=== PATIENT | female | born 1940 | race Caucasian/White ===

== ENCOUNTER 2017-02-22 15:24 | Observation (INO) | payer MEDICARE ==
[~2017-02-22] VITALS: Ht 157.5 cm; Wt 43.2 kg
[2017-02-22] VITALS (9 sets, daily range): BP systolic 98–127; BP diastolic 44–70; PULSE 53–68; RESP 10–16; O2SAT 90–99
[~2017-02-22 15:24] MED LIST: ALBU18HF INH; ASPI325T32 PO; ATRINH INH; FLUO20CA25 PO; FRNCD30C PO; FUR20 PO; KLO5T PO; LISI-571 PO; LOPE2TAB32 PO; METO25TA99 PO; ONDA4TAB6 PO; PREG200C PO; SPIR25TA PO; TRAZ150T72 PO
--- NOTE | 2017-02-22 15:56 | ED.REPORT ---
HPI-General Illness Date of Service Feb 22, 2017 ED Provider: Dr. Cramer A 76 year old female with a history of COPD, HTN, GERD, and heartburn presents to the ED complaining of weakness onset "for quite a while." She has had weakness like this before, but it was really bad yesterday. She reports that her muscles seems to give way and her legs give out. Associated symptoms include loose stool onset 1 week ago. Loose stool started as slimy, glob-like defecation for 2 days which then turned into diarrhea. She also reports vomiting the other night, having loss of appetite and decreased fluid intake. She has had nausea that has onset today. She denies any fever, chest pain, or SOB. She recently got out of the hospital, being seen by vehicle return associate and other specialists. She reports that nothing was found to be wrong with her. She was brought to the ED by . Nursing Notes Stated Complaint: WEAKNESS, UNABLE TO WALK Chief Complaint: General Complaint Nursing Notes Reviewed: Yes Allergies: Coded Allergies: dichloralphenazone (Verified Allergy, Severe, 09/19/16) isometheptene (Verified Allergy, Severe, 09/19/16) sumatriptan (Verified Allergy, Severe, 09/19/16) Calcium Channel Blocking Agents-Dih (Verified Allergy, Unknown, 09/19/16) Sulfa (Sulfonamide Antibiotics) (Verified Allergy, Unknown, 09/19/16) Thiazides (Verified Allergy, Unknown, 09/19/16) diazoxide (Verified Allergy, Unknown, 09/19/16) Scheduled Aspirin (Aspirin) 325 Mg Tablet 325 MG PO DAILY Fluoxetine (Fluoxetine) 20 Mg Capsule 20 MG PO DAILY Furosemide (Furosemide) 20 Mg Tab 20 MG PO Three times per week Ipratropium [place] (Atrovent HFA) 200 Puff/12.9 Gm Inhaler 2 PUFF INH QID Lisinopril (Lisinopril) 5 Mg Tablet 2.5 MG PO BID Metoprolol Succinate ER (Metoprolol Succinate ER) 25 Mg Tab.er.24h 12.5 MG PO DAILY Pregabalin (Lyrica) 200 Mg Capsule 200 MG PO BID Spironolactone (Aldactone) 25 Mg Tablet 25 MG PO DAILY Trazodone (Trazodone) 150 Mg Tablet 150 MG PO HS Scheduled PRN Albuterol Sulfate (Ventolin HFA Inhaler) 200 Puff/18 Gm Inhaler 2 PUFF INH Q4 PRN PRN For Wheezing Butalbital/ASA/Caff/Cod 41-708-16-30 mg (Fiorinal/Codeine 77-339-56-30 mg) 1 Each Capsule 1 CAPSULE PO DAILY PRN PRN Headache Clonazepam (Clonazepam) 0.5 Mg Tablet 0.5 MG PO DAILY PRN PRN For Anxiety Loperamide (Loperamide) 2 Mg Tablet 2 MG PO Q4H PRN PRN For Diarrhea or Loose Stool Ondansetron (Zofran) 4 Mg Tablet 4 MG PO Q4H PRN PRN For Nausea General Time Seen by MD: 15:55 Chief Complaint Weakness Hx Obtained From: Patient Arrived By: Walk-in Sudden in Onset?: No Onset Occurred: Onset unknown ("quite a while ago," worse yesterday) Symptom Duration: Since onset Severity: Current: Mild Severity: Maximum: Mild Recent Healthcare: Recent doctor visit (Echocardiogram performed on 02/04/2017.) Similar Sx Previous: No Past Medical History Past Medical History Chronic back pain Anxiety Admit for hypoxic respiratory failure August 2013 COPD History of chronic migraines and chronic pain syndrome History of peptic ulcer with GI bleed 20+ years ago History of acute renal failure History of alcohol abuse Admit for Community Acquired Pneumonia 09/18/16 Nocturia Cirrhosis Echocardiogram performed on 02/04/2017. Reports: GERD, Hypertension Past Surgical History Shoulder surgery Cholecystectomy D&C History of bilateral cataract surgery Family History Noncontributory Smoking History Former Smoker (stopped smoking in 2015) Social History Patient lives with her . Alcohol Use: Denies alcohol use Drug Use: Denies drug use Ambulatory Status Independent Review of Systems Loss of appetite. Decreased fluid intake. Full Review of Systems Constitutional: Denies: Chills, Fever Respiratory: Denies: Shortness of breath Cardiovascular: Denies: Chest pain GI: Reports: Diarrhea, Nausea, Vomiting Neurologic: Reports: Weakness Complete sys rev & neg: except as marked. Physical Exam Vital Signs Vital Signs Date Time Temp Pulse Resp B/P Pulse Ox O2 Delivery O2 Flow Rate FiO2 02/22/17 21:29 56 14 103/53 97 Nasal Cannula 3 02/22/17 17:30 62 10 108/61 93 Room Air 02/22/17 15:56 36.5 58 13 98/52 90 Room Air 02/22/17 15:28 36.2 68 16 101/63 99 Room Air Initial VS: Reviewed General/Constitutional: Awake, Alert Head / Eyes: Atraumatic, Normocephalic, PERRL, EOMI ENT: Atraumatic, Airway patent Respiratory / Chest: Atraumatic, Breath sounds NL, Breath sounds = bilat, No respiratory distress, No rales, No rhonchi, No wheezing Cardiovascular: Heart rate NL, Regular rhythm, Heart sounds NL, No gallop, No murmurs Abdomen: Soft, Non-tender, BS normoactive Back: No CVA tenderness Skin: Warm, Dry Neurologic: Oriented X3, Speech NL, No motor deficits Motor intact in all 4 extremities. Interpretation & Diagnostics Lab Results Interpretation Result Diagram: 02/22/17 1645 02/22/17 1645 Test 02/22/17 16:45 02/22/17 17:15 White Blood Count 4.4th/mm3 (3.8-10.1) Red Blood Count 3.97mil/mm3 (3.90-5.20) Hemoglobin 12.1g/dL (12.0-15.6) Hematocrit 36.7% (35.0-46.0) Mean Corpuscular Volume 92.4fL (81-100) Mean Corpuscular Hemoglobin 30.5pg (27.0-35.0) Mean Corpuscular Hemoglobin Concent 33.0% (32.0-37.0) Red Cell Distribution Width 13.2% (12.3-15.4) Platelet Count 137bil/L (150-400) Neutrophils (%) (Auto) 43.1% (40-74) Lymphocytes (%) (Auto) 39.0% (14-46) Monocytes (%) (Auto) 12.2% (4-12) Eosinophils (%) (Auto) 4.5% (0-5) Basophils (%) (Auto) 0.7% (0-3) D-Dimer 0.77mg/L FEU (<0.50) Sodium Level 133mEq/L (134-144) Potassium Level 4.7mEq/L (3.5-5.2) Chloride Level 94mEq/L (97-108) Carbon Dioxide Level 25mmol/L (18-29) Blood Urea Nitrogen 15mg/dL (8-27) Creatinine 1.21mg/dL (0.57-1.00) Estimat Glomerular Filtration Rate 62mL/min (>59) Glucose Level 96mg/dL (60-99) Calcium Level 9.8mg/dL (8.5-10.1) Magnesium Level 1.4mg/dL (1.6-2.6) Total Bilirubin 0.2mg/dL (0.0-1.2) Aspartate Amino Transf (AST/SGOT) 27U/L (0-50) Alanine Aminotransferase (ALT/SGPT) 12U/L (0-32) Alkaline Phosphatase 47U/L (25-165) Troponin T < 0.010ug/L (0.0-0.011) Total Protein 6.0g/dL (6.4-8.4) Albumin 3.7g/dL (3.4-5.0) Lipase 29U/L (13-60) Procalcitonin 0.06ng/mL (0.00-0.08) Urine Color Yellow (YELLOW) Urine Appearance Clear (CLEAR,HAZY) Urine pH 6.0 (5.0-8.0) Urine Specific [place] 1.010 (1.003-1.035) Urine Protein Negativemg/dL (NEG,TRACE) Urine Glucose (UA) Negativemg/dL (NEGATIVE) Urine Ketones Negativemg/dL (NEGATIVE) Urine Occult Blood Negative (NEGATIVE) Urine Nitrite Negative (NEGATIVE) Urine Bilirubin Negative (NEGATIVE) Urine Urobilinogen Normalmg/dL (NORMAL) Urine Leukocyte Esterase Negative (NEGATIVE) Urine RBC 0-2/hpf (0-2) Urine WBC 0-5/hpf (0-5) Urine Epithelial Cells Occasional/hpf (NONE-MOD) Urine Crystals None seen (NONE SEEN) Urine Bacteria None/hpf (NONE-FEW) Urine Hyaline Casts Rare/lpf (NONE) Urine Granular Casts None seen (NONE SEEN) Urine Waxy Casts None seen (NONE SEEN) Urine Red Blood Cell Casts None seen (NONE SEEN) Urine White Blood Cell Casts None seen (NONE SEEN) Urine Mucus None seen (None Seen) Urine Trichomonas None seen (NONE SEEN) Urine Yeast None (NONE SEEN) Urinalysis Comment None Urine Culture Reflexed Not indicated ECG Interpretation ECG Interpretation: Rate is 57. Sinus rhythm. Low voltage, extremity leads. Time: 16:16 Interpreted by: ED physician X-Ray Chest Interpretation Chest Xray Interpretation: IMPRESSION: No acute cardiopulmonary findings. Emphysematous change. Dictated by: Ani Blank M.D. on 02/22/2017 at 16:57 Approved by: Ani Blank M.D. on 02/22/2017 at 16:57 Interpretation / Wet Read by: Interpret - Radiologist Re-Eval/Medical Decision Med Decision/Clinical Course Frail elderly female with lung disease presenting with generalized weakness. He noted be hypoxic with minimal exertion. Also is dyspneic with minimal exertion. Does not appear to be in acute congestive failure based on exam and x-ray, no evidence for infiltrate or ischemia. I am told the patient was discharged on supplemental oxygen but at some point it was no longer felt that she needed it. I do not find an acute cause for weakness and numbness elderly female other than hypoxemia. The patient will like to be full code. She is admitted to hospitalist service on observation status. Source of Hx: Old records Time of Eval: 20:48 Re-Evaluation/Progress Note: Rechecked patient who has been sleeping. she reports that she lives with her . Time of Eval: 21:12 Re-Evaluation/Progress Note: Patient oxygen saturation drops into 70's on room air with ambulation. Discussed plan for admission with patient. Patient understands and agrees with the plan. All questions addressed. Consultation : Referral / Consult Name: Bao Cao MD Consulted With: Hospitalist Call Returned at: 21:23 [place] Hitch Driver: Agrees with eval, Agrees with plan, Accepts admit Note: Discussed patient case with Dr. Cao who accepts patient admit. Counseled Regarding: Diagnosis, Lab results, Need for follow-up, Need for admission Discharge & Departure Primary Impression: Hypoxia Additional Impression: Weakness Disposition: ADMITTED TO HOSPITAL Discharge Condition All VS Reviewed: Yes Condition: Stable Referrals: Rose Cohen PA-C (PCP) Tiffanie Attestation Portions of this note were transcribed by Aguilar Blas. IDr. Cramer personally performed the history, physical exam and medical decision-making; I reviewed and confirmed the accuracy of the information in the transcribed note. Signed by: Tiffanie Wren, 02/22/2017, 0725. copies to: Rose Cohen PA-C, Donald L MD Feb 22, 2017 15:56 Aguilar Blas Feb 22, 2017 16:24
[2017-02-22] MEDS ORDERED: 0.9% Sodium Chloride 1,000 ML IV ONE (16:03)
[2017-02-22] MEDS ORDERED: Ondansetron 2 mg/mL 2 mL Inj IV PRN (16:05)
--- NOTE | 2017-02-22 16:59 | DRSVH ---
PROCEDURE: X-RAY CHEST ONE VIEW, PORTABLE ([id number]) INDICATIONS: weakness TECHNIQUE: One view of the chest was acquired. COMPARISON: None. FINDINGS: Surgical changes and devices: None. Lungs and pleura: No pleural effusions or pneumothorax. Lungs are clear. The lung volumes are larg e and the diaphragms are flattened suggesting emphysema. Mediastinum: Mediastinal contours appear normal. Heart size is normal. Bones and chest wall: No suspicious bony lesions. S-shaped scoliosis is present throughout the thor acic spine. Overlying soft tissues appear unremarkable. IMPRESSION: No acute cardiopulmonary findings. Emphysematous change. Dictated by: Ani Blank M.D. on 02/22/2017 at 16:57 Approved by: Ani Blank M.D. on 02/22/2017 at 16:57
[2017-02-22 17:14] LABS: BASOPHILS % (AUTO) 0.7 % (0-3); EOSINOPHILS % (AUTO) 4.5 % (0-5); MONOCYTES % (AUTO) 12.2 % (4-12); Mean Corpuscular Hemoglobin 30.5 pg (27.0-35.0); Mean Corpuscular Volume 92.4 fL (81-100); NEUTROPHILS % (AUTO) 43.1 % (40-74); Platelet Count 137 bil/L (150-400)
[2017-02-22 17:41] LABS: Lipase 29 U/L (13-60); Magnesium 1.4 mg/dL (1.6-2.6)
[2017-02-22 17:45] LABS: TROPONIN T < 0.010 ug/L (0.0-0.011)
[2017-02-22 18:00] LABS: APPEARANCE,URINE CLEAR (CLEAR,HAZY); COLOR,URINE YELLOW (YELLOW); OCCULT BLOOD,URINE NEGATIVE (NEGATIVE); UROBILINOGEN,URINE NORMAL (NORMAL)
[2017-02-22] MEDS ORDERED: Ondansetron 2 mg/mL 2 mL Inj IVPUSH PRN ×2 (22:20)
[2017-02-22] MEDS ORDERED: Alum-Mag Hydrox-Simeth 30 mL Suspension PO PRN ×2 (22:20)
[2017-02-22] MEDS ORDERED: 0.9% Sodium Chloride 500 ML IV ONE (22:25)
[2017-02-22] MEDS ORDERED: Magnesium Sulf 2 Gm/50mL Water 2 GM in IV Premix 1 EACH IV ONE (22:25)
[2017-02-22] MEDS ORDERED: Albuterol 2.5 mg/3 mL Inhalation Solution NEB PRN (22:45)
[2017-02-22] MEDS ORDERED: Albuterol-Ipratropium 3 mL Inhalation Solution NEB PRN (22:45)
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
[2017-02-23] VITALS (7 sets, daily range): BP systolic 98–121; BP diastolic 50–67; PULSE 55–73; RESP 15–18; O2SAT 83–92
[2017-02-23] MEDS: Heparin 5,000 Unit/mL Inj SUBQ SCH ×3 (01:19→16:49)
--- NOTE | 2017-02-23 06:31 | NUR ---
MARILEE PT received from ED around 2300 last noc. PT here for generalized weakness she reported and n/v/diarrhea. PT has not had any s/s except weakness noted. She is a 1p SBA to BSC. Denies any pain. Lungs are diminished t/o and requiring 2l NC. ON tele and in NSR. V/S WNL. PT is a poor historian. MOst of her meds were reconciled to the best of her knowledge. PT uses call light appropriately. ORthostatics were done and were slightly irregular. WE are waiting for a stool sample. Magnesium was replaced with 2gms IV for a mag of 1.4. D dimer was elevated at 0.77, but no further tests are scheduled at this time. Heparin given for DVT prophylaxis. Will CTM.
[2017-02-23 06:48] LABS: BASOPHILS % (AUTO) 0.5 % (0-3); EOSINOPHILS % (AUTO) 4.5 % (0-5); MONOCYTES % (AUTO) 10.9 % (4-12); Mean Corpuscular Hemoglobin 30.5 pg (27.0-35.0); Mean Corpuscular Volume 91.6 fL (81-100); Platelet Count 133 bil/L (150-400)
[2017-02-23 07:14] LABS: Magnesium 1.8 mg/dL (1.6-2.6)
--- NOTE | 2017-02-23 12:22 | NUR ---
RIC explained to pt and her who is at bedside. Ric signed by , copy given to him.
--- NOTE | 2017-02-23 13:03 | NUR ---
Evaluation completed. Please go to "Notes" then click on "Assessments and Notes" (bottom left corner of screen). Then select appropriate discipline tab on top of screen.
--- NOTE | 2017-02-23 14:42 | PCM.PNMED ---
Subjective Date of Service Feb 23, 2017 Subjective reports continued generalized weakness and malaise. no CP, SOB, n/v Exam Vital Signs Vital Sign - Last Date Time Temp Pulse Resp B/P Pulse Ox O2 Delivery O2 Flow Rate FiO2 02/23/17 13:29 36.8 57 16 103/58 90 Room Air 02/23/17 04:17 2.00 Intake and Output 02/22/17 02/22/17 02/23/17 Cumulative From/Thru 15:00 23:00 07:00 02/22/17 15:28 - 02/23/17 06:09 Intake Total 1000 ml 1257 ml 2257 ml Output Total 300 ml 800 ml 1100 ml Balance 700 ml 457 ml 1157 ml Intake Oral 200 ml 200 ml IV Total 1000 ml 1057 ml 2057 ml Output Urine Total 300 ml 800 ml 1100 ml # Bowel Movements 0 0 General: Alert, Cooperative, No Acute Distress Head: Normal Eyes: Scleral Anicteric Nose: Mucous Membr Moist/[place] Negron Torres Mouth: Mucous Membr Moist/[place] Torres Neck: Supple Chest & Lungs: Chest Wall Normal, Clear to auscultation & percussion Cardiovascular: Regular Rate/Rhythm Pulses: NL carotid, radial, femoral, DP, PT Abdomen: Non-tender, Non-distended, Normoactive bowel tones, Soft Extremities: No cyanosis/clubbing/edma bilat Skin: Other (no rash) Neurological: Grossly Neurologically Intact, Cranial Nerves 2-12 Intact, Normal Speech IVs and Medications Medications Reviewed: Medications were reviewed in detail Lab and Diagnostics Result Diagram: 02/23/17 0630 02/23/17 0630 X-Rays, CTs and MRIs PROCEDURE: X-RAY CHEST ONE VIEW, PORTABLE ([id number]): Lungs and pleura: No pleural effusions or pneumothorax. Lungs are clear. The lung volumes are large and the diaphragms are flattened suggesting emphysema. Mediastinum: Mediastinal contours appear normal. Heart size is normal. Bones and chest wall: No suspicious bony lesions. S-shaped scoliosis is present throughout the thoracic spine. Overlying soft tissues appear unremarkable. IMPRESSION: No acute cardiopulmonary findings. Emphysematous change. Assessment & Plan 76 yo F with history of COPD on home oxygen, h/o CHF with normalized LVEF of 65- 70% on echo from 01/2017, PFO, alcohol abuse in remission, chronic pain, anxiety disorder, and tobacco dependence who presented to the ED with her for complaints of increasing weakness. She was admitted to the hospital for further evaluation when her saturations dropped to the low 70s on ambulation. # Acute Hypoxic Respiratory Failure, Present on Admission. improving -CTA negative for pulmonary embolism -physical therapy evaluation -continue with supportive care including supplemental oxygen as need -reassess oxygen needs with ambulation # Acute Kidney Injury, present on admission. -resolved with IV fluid -hold home dose Spironolactone for now -continue with IV fluid # Acute hyperkalemia. not present on admission. -change IV fluid to D5 1/2 NS -followup labs and if persist or rising will consider Kayexalate -monitor on Tele until hyperkalemia resolve # Acute diarrhea, reported present on admission. currently resolved. -continue home Loperamide # Acute dehydration. present on admission. improving -hold home dose Spironolactone for now -continue with IV fluid # History of COPD. stable -no signs of acute exacerbation currently, other than the transient desat with ambulation -keep Saturations between 88-92% -Albuterol HFA prn -Duoneb prn # Acute hypomagnesemia, present on admission. -resolved after replacement. # History of diastolic CHF. stable and compensated. -LVEF 65-70% on 01/2017. -hold Spironolactone as noted # Chronic Pain. stable -continue with supportive care # History of anxiety and depression. stable -continue Fluoxetine Dispo: 1-2 days VTE Prophylaxis: Sub-Q Heparin (Unfractionated) Resuscitation Status: CPR: Attempt Resuscitation Giuliano Dorman Feb 23, 2017 14:42
[2017-02-23] MEDS ORDERED: Dextrose 5% 0.9% NaCl 1,000 ML IV ONE (14:45)
--- NOTE | 2017-02-23 15:46 | NUR ---
Social Work Note: Initial Assessment Data& Assessment: EMR reviewed. SW met with pt and pt at bedside to discuss discharge planning, SW role explained. Debra Rebolledo is a 76 year old female admitted on 02/22/2017 for general weakness and hypoxcemia. Pt has [employer] [facility] [place] medic plan and sees Rose BOND for primary care. Pt lives in [place] with her spouse and is independent at baseline. Pt does not use any DME at home and does not have SNF hx. Pt has had [facility] in the past for RN and PT. Pt does not wear oxygen at home but is requiring oxygen at this time. Pt drives at baseline. Pt lives in a two story home. Pt does not have LTC insurance or VA benefits. Pt has DPOA/Advance Directive paperwork completed at home, SW requested a copy when possible. SW to follow for PT evaluation and recommendations. Pt denies any other needs at this time. SW to continue to follow. Plan: Anticipated discharge home via POV when medically ready. SW to follow for PT evaluation and recommendations. Pt denies any other needs at this time. SW to continue to follow. MELE Covarrubias Addendum: 02/23/17 at 1552 by MAHI BARLOW Amended: Links added.
[2017-02-24] MEDS: Heparin 5,000 Unit/mL Inj SUBQ SCH ×2 (01:24→09:24)
[2017-02-24 01:52] VITALS: BP 144/66; PULSE 63; RESP 18; O2SAT 89
--- NOTE | 2017-02-24 04:59 | NUR ---
O2 sats while ambulation pt had a 83-88% of o2 saturation while ambulating around hallways. Pt however, denies sob. Denies chest pain, n/v or abd discomfort. HS meds administered as scheduled. VSS and afebrile overnight. Will continue to monitor.
[2017-02-24 05:52] VITALS: BP 132/74; PULSE 65; RESP 16; O2SAT 90
[2017-02-24 06:19] LABS: Mean Corpuscular Hemoglobin 30.1 pg (27.0-35.0); Mean Corpuscular Volume 92.5 fL (81-100)
[2017-02-24 07:54] VITALS: PULSE 68; RESP 16; O2SAT 91
[2017-02-24 10:10] VITALS: BP 144/77; PULSE 72; RESP 20; O2SAT 93
[2017-02-24 10:33] VITALS: PULSE 84
[2017-02-24] MEDS ORDERED: LISI-571 PO (11:07)
--- NOTE | 2017-02-24 11:07 | PCM.DIMED ---
Discharge Instructions Date of Service Feb 24, 2017 Dates of Hospitalization Feb 22, 2017 at 21:54 Discharge Diagnosis Discharge Diagnosis # Acute Kidney Injury due to dehydration, present on admission. Resolved with IV fluid # Acute dehydration. present on admission. Resolved # Acute hyperkalemia. Not present on admission. Resolved # Acute diarrhea, reported present on admission. Improved # Acute hypoxic respiratory failure, present on Admission. Resolved. -CTA chest negative for pulmonary embolism # History of COPD. Stable # Acute hypomagnesemia, present on admission. Resolved # History of systolic CHF. Resolved and stable based on echocardiogram on 2016 showing LVEF 65-70% # Chronic Pain. stable # History of anxiety and depression. stable Diet Low fat, Low Sodium, Heart Healthy Activity Outpatient Physical Therapy Call your provider Fever or Chills, Shortness of breath, Chest pain, Vomitting, Excessive diarrhea Patient Instructions Seek immediate medical attention if any new or worsening signs or symptoms occur. Follow-up plan 1. Followup with your primary care provider in 5-10 days 2. Followup with your jukebox routeman as previously planned Follow-up Provider: Rose Cohen PA-C Provider: Jorge Orozco MD, Masoud Feb 24, 2017 11:07
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
--- NOTE | 2017-02-24 13:10 | NUR ---
Discharge Patient departed unit via wheelchair, accompanied by staff and patient. Patient alert and oriented at time of discharge. Patient ambulated with Pt in hallway prior to discharge with O2 sats dropping to 89% on room air. Patient O2 sats recovered with some deep breathing as prompted by physical therapy. Patient reporting some shortness of breath with exertion. Denies pain, chest discomfort, difficulty with urination, nausea. Reporting loose stools this am. Discharge instructions/medications reviewed with patient prior to discharge. All questions addressed. Discharge instructions, patient belongings and prescription in hand.
--- NOTE | 2017-02-24 15:17 | PCM.DC.MED ---
Discharge Summary Date of Service Feb 24, 2017 Dates of Hospitalization Date of Hospital Admission Feb 22, 2017 at 21:54 Date of Discharge: Feb 24, 2017 Providers: Admitting Physician: Bao Cao MD Primary Care Physician: Rose Cohen PA-C Attending Physician: Bao Cao MD Diagnosis at Time of Discharge Diagnosis at Time of Discharge # Acute Kidney Injury due to dehydration, present on admission. Resolved with IV fluid # Acute dehydration. present on admission. Resolved # Acute hyperkalemia. Not present on admission. Resolved # Acute diarrhea, reported present on admission. Improved # Acute hypoxic respiratory failure, present on Admission. Resolved. -CTA chest negative for pulmonary embolism # History of COPD. Stable # Acute hypomagnesemia, present on admission. Resolved # History of systolic CHF. Resolved and stable based on echocardiogram on 2016 showing LVEF 65-70% # Chronic Pain. stable # History of anxiety and depression. stable Procedures XRay, CTs & MRIs Date of Service: 02/22/17 1603 PROCEDURE: X-RAY CHEST ONE VIEW, PORTABLE ([id number]) IMPRESSION: No acute cardiopulmonary findings. Emphysematous change. Dictated by: Ani Blank M.D. on 02/22/2017 at 16:57 Approved by: Ani Blank M.D. on 02/22/2017 at 16:57 Brief History As noted in H&P by Dr. Baker: Debra is a 76 yo F with history of COPD on home oxygen, h/o CHF with normalized LVEF of 65-70% on echo from 01/2017, PFO, alcohol abuse in remission , chronic pain, anxiety disorder, and tobacco dependence who presented to the ED with her for complaints of increasing weakness and fatigue. Patient is a poor historian, but reports that she has been having ongoing weakness "for a while now". She reports her legs have been buckling more in the last few days while walking, and her was worried so he brought her to the ER. She has also been experiencing diarrhea, nausea, and vomiting in the last 3-4 days. She denies any fevers, CP, SOB, cough, or dysuria, but admits to some chills. She was hospitalized on 09/2016 for Comm acquired Pneumonia, decompensated HF, and COPD exacerbation. She was discharged with home O2, which she reports she has not been using much recently. She has been following up with her inventory administrator, Dr. Orozco. She reports she has been compliant with her medications. She was at her baseline and was able to perform her ADLs prior to this week. In the ED, she was afebrile, and her pulse were in the low 50s to low 60s. Her BP ranged between 98/52 to 112/44. Her breathing rate occasionally dipped to 10. She was noted to be saturating in the low 90s on RA. She received 1 liter of NS. She was then roadtested, but was noted to desat to low 70s on RA with ambulation. Her EKG showed sinus rhythm with rate of 57. Her CBC was benign and her CMP showed a Cr of 1.21 with mag of 1.4 Hospital Course # Acute Hypoxic Respiratory Failure, Present on Admission. Resolved -CTA negative for pulmonary embolism -physical therapy evaluation -reassessed by respiratory therapy on day of discharge and does not meet requirement for further home oxygen at this time. # Acute Kidney Injury, present on admission. -resolved with IV fluid -per discussion with her inventory administrator (Dr Orozco) will stop all diuretics on discharge. # Acute hyperkalemia. not present on admission. Resolved. -stop home Spironolactone. # Acute diarrhea, reported present on admission. currently resolved. -continue home Loperamide -stool pcr negative # Acute dehydration. present on admission. Resolved -hold home diuretics as noted above # History of COPD. stable -no signs of acute exacerbation currently # Acute hypomagnesemia, present on admission. -resolved after replacement. # History of systolic CHF. Resolved and stable based on last echo from 01/2017 ( LVEF 65-70%) -stop diuretics and metoprolol per discussion with Dr. Orozco -continue with low dose Lisinopril # Chronic Pain. stable -continue with supportive care # History of anxiety and depression. stable -continue Fluoxetine Exam Vital Signs (Last) Date Time Temp Pulse Resp B/P Pulse Ox O2 Delivery O2 Flow Rate FiO2 02/24/17 13:17 Room Air 02/24/17 10:33 84 02/24/17 10:10 36.7 20 144/77 93 02/23/17 04:17 2.00 Exam General: Alert, Cooperative, No Acute Distress Head: Normal Eyes: Scleral Anicteric Nose: Mucous Membr Moist/[place] Mouth: Mucous Membr Moist/[place] Neck: Supple Chest & Lungs: Chest Wall Normal, Clear to auscultation bilaterally Cardiovascular: Regular Rate/Rhythm Pulses: NL carotid, radial, femoral, DP, PT Abdomen: Non-tender, Non-distended, Normoactive bowel tones, Soft Extremities: No cyanosis/clubbing/edema bilat Skin: Other (no rash) Neurological: Grossly Neurologically Intact, Cranial Nerves 2-12 Intact, Normal Speech Test 02/22/17 16:45 02/22/17 17:15 02/23/17 06:30 02/24/17 05:25 D-Dimer 0.77mg/L FEU (<0.50) Total Bilirubin 0.2mg/dL (0.0-1.2) Aspartate Amino Transf (AST/SGOT) 27U/L (0-50) Alanine Aminotransferase (ALT/SGPT) 12U/L (0-32) Alkaline Phosphatase 47U/L (25-165) Troponin T < 0.010ug/L (0.0-0.011) Total Protein 6.0g/dL (6.4-8.4) Albumin 3.7g/dL (3.4-5.0) Lipase 29U/L (13-60) Procalcitonin 0.06ng/mL (0.00-0.08) Urine Color Yellow (YELLOW) Urine Appearance Clear (CLEAR,HAZY) Urine pH 6.0 (5.0-8.0) Urine Specific Sebastian 1.010 (1.003-1.035) Urine Protein Negativemg/dL (NEG,TRACE) Urine Glucose (UA) Negativemg/dL (NEGATIVE) Urine Ketones Negativemg/dL (NEGATIVE) Urine Occult Blood Negative (NEGATIVE) Urine Nitrite Negative (NEGATIVE) Urine Bilirubin Negative (NEGATIVE) Urine Urobilinogen Normalmg/dL (NORMAL) Urine Leukocyte Esterase Negative (NEGATIVE) Urine RBC 0-2/hpf (0-2) Urine WBC 0-5/hpf (0-5) Urine Epithelial Cells Occasional/hpf (NONE-MOD) Urine Crystals None seen (NONE SEEN) Urine Bacteria None/hpf (NONE-FEW) Urine Hyaline Casts Rare/lpf (NONE) Urine Granular Casts None seen (NONE SEEN) Urine Waxy Casts None seen (NONE SEEN) Urine Red Blood Cell Casts None seen (NONE SEEN) Urine White Blood Cell Casts None seen (NONE SEEN) Urine Mucus None seen (None Seen) Urine Trichomonas None seen (NONE SEEN) Urine Yeast None (NONE SEEN) Urinalysis Comment None Urine Culture Reflexed Not indicated Neutrophils (%) (Auto) 45.0% (40-74) Lymphocytes (%) (Auto) 38.6% (14-46) Monocytes (%) (Auto) 10.9% (4-12) Eosinophils (%) (Auto) 4.5% (0-5) Basophils (%) (Auto) 0.5% (0-3) Lactic Acid Level 0.5mmol/L (0.4-2.0) Magnesium Level 1.8mg/dL (1.6-2.6) White Blood Count 4.7th/mm3 (3.8-10.1) Red Blood Count 3.75mil/mm3 (3.90-5.20) Hemoglobin 11.3g/dL (12.0-15.6) Hematocrit 34.7% (35.0-46.0) Mean Corpuscular Volume 92.5fL (81-100) Mean Corpuscular Hemoglobin 30.1pg (27.0-35.0) Mean Corpuscular Hemoglobin Concent 32.6% (32.0-37.0) Red Cell Distribution Width 13.5% (12.3-15.4) Platelet Count 144bil/L (150-400) Sodium Level 143mEq/L (134-144) Potassium Level 4.6mEq/L (3.5-5.2) Chloride Level 107mEq/L (97-108) Carbon Dioxide Level 24mmol/L (18-29) Blood Urea Nitrogen 12mg/dL (8-27) Creatinine 0.73mg/dL (0.57-1.00) Estimat Glomerular Filtration Rate 112mL/min (>59) Glucose Level 87mg/dL (60-99) Calcium Level 8.7mg/dL (8.5-10.1) Discharge Medications Discharge Medications Aspirin (Aspirin) 325 Mg Tablet 325 MG PO DAILY (Reported) Fluoxetine (Fluoxetine) 20 Mg Capsule 20 MG PO DAILY (Reported) Ipratropium [place] (Atrovent HFA) 200 Puff/12.9 Gm Inhaler 2 PUFF INH QID ( Reported) Lisinopril (Lisinopril) 5 Mg Tablet 5 MG PO DAILY Prescribed by: ELMA SEWELL MD Pregabalin (Lyrica) 200 Mg Capsule 200 MG PO BID (Reported) Trazodone (Trazodone) 150 Mg Tablet 150 MG PO HS (Reported) As needed Albuterol Sulfate (Ventolin HFA Inhaler) 200 Puff/18 Gm Inhaler 2 PUFF INH Q4 PRN PRN For Wheezing (Reported) Butalbital/ASA/Caff/Cod 79-495-24-30 mg (Fiorinal/Codeine 32-277-38-30 mg) 1 Each Capsule 1 CAPSULE PO DAILY PRN PRN Headache (Reported) Clonazepam (Clonazepam) 0.5 Mg Tablet 0.5 MG PO DAILY PRN PRN For Anxiety ( Reported) Loperamide (Loperamide) 2 Mg Tablet 2 MG PO Q4H PRN PRN For Diarrhea or Loose Stool (Reported) Ondansetron (Zofran) 4 Mg Tablet 4 MG PO Q4H PRN PRN For Nausea (Reported) Followup Plan Disposition: Home with home health Follow-up plan 1. Followup with your primary care provider in 5-10 days 2. Followup with your inventory administrator as previously planned Discharge Diet: Low fat, Low Sodium, Heart Healthy Discharge Activity: Home Health Phyical Therapy Patient Instructions Seek immediate medical attention if any new or worsening signs or symptoms occur. Follow-up Provider: Rose Cohen PA-C Provider: Jorge Orozco MD Time spent 35 min copies to: Rose Cohen PA-C; Jorge Orozco MD, Masoud Feb 24, 2017 15:17
== END 2017-02-24 13:05 | disposition home or self-care (01) ==
LOC: SED 15:24 → MPC 21:54
PROVIDERS: ADMIT Hospitalist; ATTEND Hospitalist
DX: N17.9 Acute kidney failure, unspecified (principal); E86.0 Dehydration; E87.5 Hyperkalemia; R19.7 Diarrhea, unspecified; J96.00 Acute respiratory failure, unspecified whether with hypoxia or hypercapnia; J44.9 Chronic obstructive pulmonary disease, unspecified; E83.42 Hypomagnesemia; I50.20 Unspecified systolic (congestive) heart failure; G89.4 Chronic pain syndrome; F41.8 Other specified anxiety disorders; F10.21 Alcohol dependence, in remission; G43.909 Migraine, unspecified, not intractable, without status migrainosus; M81.0 Age-related osteoporosis without current pathological fracture; I11.0 Hypertensive heart disease with heart failure; K21.9 Gastro-esophageal reflux disease without esophagitis; Q21.1 Atrial septal defect; Z87.891 Personal history of nicotine dependence; K74.60 Unspecified cirrhosis of liver; Z99.81 Dependence on supplemental oxygen; Z79.82 Long term (current) use of aspirin; Z79.51 Long term (current) use of inhaled steroids
CPT/HCPCS: 36415; 71010; 80048; 80053; 81000; 83605; 83690; 83735; 84145; 84484; 85025; 85027; 85378; 87507; 93005; 94799; 96374; 96375; 97116; 97161; 99285; G0378; J1644; J2405; J7030; J7042